=== PATIENT | male | born 1925 ===

== ENCOUNTER → 2016-11-08 | Outpatient (CLI) | payer MEDICARE, BC, OTHER ==
--- NOTE | 2016-11-08 13:30 | EKG REPORT ---
SEVERITY:- ABNORMAL ECG - ATRIAL FIBRILLATION LOW VOLTAGE IN FRONTAL LEADS : Confirmed by: Vidal Abbott MD 08-Nov-2016 13:30:06
== END ==
LOC: OD 11:57
PROVIDERS: ATTEND Family Medicine
DX: I48.2 Chronic atrial fibrillation (principal); I50.32 Chronic diastolic (congestive) heart failure
CPT/HCPCS: 93005; 93010

== ENCOUNTER → 2016-11-15 | Outpatient (CLI) | payer MEDICARE, BC, OTHER ==
--- NOTE | 2016-11-15 19:21 | XCELERA REPORT ---
[address] [address] Transthoracic Echocardiogram Report Name: ANDREA SIMPSON Age: 89 yrs Gender: Male : 1925 Patient Status: Outpatient Patient Location: Study Date: 11/15/2016 10:48 AM Height: 74 in Weight: 215 lb BSA: 2.2 m2 Procedure: A complete two-dimensional transthoracic echocardiogram was performed (2D, M-mode, spectral and color flow Doppler). The study was technically difficult with many images being suboptimal in quality. Reason For Study: CHF Ordering Physician: KERLINE KEMP Performed By: Lindsey Lopes Interpretation Summary LV diastolic function could not be adequately assessed due to atrial fibrilation. The study was technically difficult with many images being suboptimal in quality. Left ventricular systolic function is borderline reduced. The Ejection Fraction estimate is 50-55% There is mild concentric left ventricular hypertrophy. The left ventricle is grossly normal size. There is borderline global hypokinesis of the left ventricle. The right ventricle is moderate to severely dilated. The right ventricle appears to be hypertrophied The right ventricular systolic function is moderately reduced. The right atrium is mildly dilated. The left atrium is borderline dilated. There is a mild amount of mitral regurgitation There is no mitral valve stenosis. There is a mild amount of aortic regurgitation There is no aortic valve stenosis There is a moderate amount of tricuspid regurgitation There is mild pulmonary hypertension by echo Right ventricular systolic pressure is estimated to be elevated at 30- 40mmHg. The aortic root is not well visualized but is probably normal size. The inferior vena cava appeared normal and decreased < 50% with respiration (RAP 10-15 mmHg) Minimal pericardial effusion. MMode/2D Measurements \T\ Calculations RVDd: 3.4 cm LVIDd: 4.6 cm FS: 23.9 % Ao root diam: IVSd: 1.1 cm LVIDs: 3.5 cm EDV(Teich): 3.4 cm LVPWd: 1.0 cm 99.8 ml Ao root area: ESV(Teich): 52.3 ml 8.9 cm2 EF(Teich): LA dimension: 47.6 % 3.7 cm LVOT diam: 2.2 cm LA A2Cs: LA A4Cs: LA length: 6.8 cm LVOT area: 4.0 cm2 23.6 cm2 24.0 cm2 LA Vol Index (BP): LA Volume: 71.1 ml 31.7 ml/m2 Doppler Measurements \T\ Calculations MV E max geoffrey: MV P1/2t max geoffrey: Ao V2 max: LV V1 max P.5 cm/sec 65.4 cm/sec 103.8 cm/sec 1.2 mmHg MV P1/2t: 36.6 msec Ao max PG: LV V1 max: MVA(P1/2t): 6.0 cm2 4.3 mmHg 54.9 cm/sec MV dec slope: REGAN(V,D): 2.1 cm2 523.2 cm/sec2 PA V2 max: TR max geoffrey: 57.1 cm/sec 227.0 cm/sec PA max PG: TR max P.6 mmHg 1.3 mmHg Left Ventricle The left ventricle is grossly normal size. There is mild concentric left ventricular hypertrophy. Left ventricular systolic function is borderline reduced. The Ejection Fraction estimate is 50-55%. LV diastolic function could not be adequately assessed due to atrial fibrilation. There is borderline global hypokinesis of the left ventricle. Right Ventricle The right ventricle is moderate to severely dilated. The right ventricle appears to be hypertrophied. The right ventricular systolic function is moderately reduced. Atria The right atrium is mildly dilated. The left atrium is borderline dilated. Interarterial septum not well visualized and not well dopplered. Cannot comment on ASD/PFO presence. Mitral Valve The mitral valve is grossly normal. There is no mitral valve stenosis. There is a mild amount of mitral regurgitation. Aortic Valve The aortic valve is sclerotic, but shows no functional abnormality. There is no aortic valve stenosis. There is a mild amount of aortic regurgitation. Tricuspid Valve The tricuspid valve is not well visualized, but is grossly normal. There is no tricuspid stenosis. There is a moderate amount of tricuspid regurgitation. There is mild pulmonary hypertension by echo. Right ventricular systolic pressure is estimated to be elevated at 30-40mmHg. Pulmonic Valve The pulmonic valve is not well visualized. Great Vessels The aortic root is not well visualized but is probably normal size. The inferior vena cava appeared normal and decreased < 50% with respiration (RAP 10-15 mmHg). Effusions Minimal pericardial effusion. : KERLINE KEMP Shyamal
== END ==
LOC: SP 10:04
PROVIDERS: ATTEND Family Medicine
DX: I48.2 Chronic atrial fibrillation (principal); I50.32 Chronic diastolic (congestive) heart failure
CPT/HCPCS: 93306